=== PATIENT | female | born 1990 | race Caucasian/White ===

== ENCOUNTER 2020-04-01 06:51 | Emergency (ER) | payer OTHER ==
[2020-04-01] MEDS ORDERED: LORAZEPAM INJ 2 MG/1 ML VIAL IV ONE (07:52)
[2020-04-01] MEDS ORDERED: NORMAL SALINE 1000 ML 1,000 ML with POTASSIUM CHLORIDE 10 MEQ, MAGNESIUM SULFATE 8 MEQ,... IV PRN ×5 (07:54)
[2020-04-01 07:57] LABS: ALBUMIN 4.8 g/dL (3.5-5.0); ALCOHOL 53 mg/dL (NONE DETECTED); ALKALINE PHOSPHATASE 79 U/L (38-126); ANION GAP 16 (5-19); ASPARTATE AMINO TRANSFERASE 80 U/L (14-36); BILIRUBIN,DIRECT 0.2 mg/dL (0.0-0.4); BILIRUBIN,TOTAL 0.7 mg/dL (0.2-1.3); BLOOD UREA NITROGEN 4 mg/dL (7-20); CALCIUM 8.6 mg/dL (8.4-10.2); CARBON DIOXIDE 22 mmol/L (22-30); CHLORIDE 92 mmol/L (98-107); GLUCOSE 97 mg/dL (75-110); POTASSIUM 3.4 mmol/L (3.6-5.0); TOTAL PROTEIN 7.7 g/dL (6.3-8.2)
[2020-04-01 07:59] LABS: ABSOLUTE EOSINOPHILS # (AUTO) 0.1 10^3/uL (0.0-0.6); ABSOLUTE LYMPHOCYTES (AUTO) 0.6 10^3/uL (0.5-4.7); ABSOLUTE MONOCYTES (AUTO) 0.3 10^3/uL (0.1-1.4); ABSOLUTE NEUT (AUTO) 3.1 10^3/uL (1.7-8.2); BASOPHILS % (AUTO) 0.7 % (0-2); EOSINOPHILS % (AUTO) 1.3 % (0-6); HEMATOCRIT 34.8 % (36.0-47.0); HEMOGLOBIN 11.8 g/dL (12.0-15.5); LYMPHOCYTES % (AUTO) 14.2 % (13-45); MEAN CORPUSCULAR HEMOGLOBIN 30.9 pg (27.0-33.4); MEAN CORPUSCULAR VOLUME 91 fl (80-97); MONOCYTES % (AUTO) 6.9 % (3-13); PLATELET COUNT 187 10^3/uL (150-450); RED BLOOD COUNT 3.83 10^6/uL (3.72-5.28); RED CELL DISTRIBUTION WIDTH 18.4 % (11.5-14.0); SEGMENTED NEUTROPHILS % (AUTO) 76.9 % (42-78); TOTAL CELLS COUNTED % (AUTO) 100 %; WHITE BLOOD COUNT 4.1 10^3/uL (4.0-10.5)
[2020-04-01 08:01] LABS: ACETAMINOPHEN < 10 ug/mL (10-30); SALICYLATE < 1.0 mg/dL (2.0-20.0)
[2020-04-01 08:24] LABS: APPEARANCE,URINE CLEAR; BILIRUBIN,URINE NEGATIVE (NEGATIVE); COLOR,URINE COLORLESS; GLUCOSE, URINE NEGATIVE (NEGATIVE); KETONES,URINE NEGATIVE (NEGATIVE); LEUKOCYTE ESTERASE,URINE NEGATIVE (NEGATIVE); NITRITE,URINE NEGATIVE (NEGATIVE); PROTEIN,URINE NEGATIVE (NEGATIVE); URINE SPECIFIC GRAVITY 1.001; UROBILINOGEN,URINE NEGATIVE mg/dL (<2.0)
--- NOTE | 2020-04-01 08:39 | ER Document Report ---
ED General - General Chief Complaint: Alcohol Withdrawl Stated Complaint: ETOH WITHDRAWAL Time Seen by Provider: 04/01/20 07:49 Primary Care Provider: NAS ROLLINS MD [Primary Care Provider] - Follow up as needed Mode of Arrival: Ambulatory Information source: Patient Notes: 29-year-old woman presenting to the emergency department with the complaint of alcohol withdrawal symptoms. Apparently, she had been binging alcohol heavily for a few weeks and has now tried to taper herself off of the alcohol use. She was seen [facility] yesterday, states she received a banana bag and was discharged home. Later in the evening approximately 6 PM she began to have a shaky and withdrawal symptoms, she drank 2 cans of white claw to try and mitigate the symptoms. She presents to the emergency department now with severe shaking and withdrawal symptoms. She is tachycardic, diastolic blood pressure is elevated and she states she cannot rest. - Related Data Allergies/Adverse Reactions: No Known Allergies Allergy (Verified 04/01/20 08:56) Past Medical History - Social History Smoking Status: Current Every Day Smoker Family History: Reviewed & Not Pertinent Review of Systems - Review of Systems Notes: Constitutional: Negative for fever. HENT: Negative for sore throat. Eyes: Negative for visual changes. Cardiovascular: Negative for chest pain. Respiratory: Negative for shortness of breath. Gastrointestinal: Negative for abdominal pain, vomiting or diarrhea. Genitourinary: Negative for dysuria. Musculoskeletal: Negative for back pain. Skin: Negative for rash. Neurological: See HPI 10 point ROS negative except as marked above and in HPI. Physical Exam - Vital signs Vitals: Resp Pulse Ox 23 H 98 04/01/20 06:58 04/01/20 06:58 - Notes Notes: PHYSICAL EXAMINATION: Physical Exam: General: Well-nourished well-developed 29-year-old female of alcohol withdrawal symptoms. HEENT: NC/AT, pupils equal round and reactive to light, MM moist,nares clear, oropharynx clear, airway patent Neck: supple, no adenopathy, no masses. Good range of motion Lungs: clear, no wheezing, no rales no rhonchi CVS: Tachycardic rate and rhythm no murmur gallop or rub Abdomen: Soft, active, nontender, no masses, no hepatosplenomegaly Ext: No edema, clubbing or cyanosis. Neuro: Alert and responsive, she is shaking in the upper extremities Skin: Intact no open lesions, no rash PSYCH: Normal mood, normal affect. Course - Re-evaluation Re-evalutation: 04/01/20 10:21 29-year-old woman who presents with alcohol withdrawal symptoms. She is very shaky and tachycardic with an elevated diastolic blood pressure. I have had discussions with [facility] regarding transfer, a Covid test was requested. The rapid Covid test is negative. Patient is receiving a banana bag, she received Ativan 2 mg, she is also receive magnesium 800 mg p.o., the magnesium level is 1.0 04/01/20 10:35 I discussed the patient with Dr. Pyle at the [facility], she will accept the patient in transfer. Explained to the patient that she is being transferred to the [facility] given her active duty status. 04/01/20 11:16 Transfer Evaluation Prior to Transport. Patient is being transferred to [facility], evaluation at the time of transfer, patient is hemodynamically stable. Transport team successfully moved the patient onto the stretcher without incident. Patient stable for transport. - Vital Signs Vital signs: Temp Pulse Resp BP Pulse Ox 98.9 F 102 H 22 H 134/94 H 96 04/01/20 11:02 04/01/20 07:09 04/01/20 11:02 04/01/20 11:02 04/01/20 11:02 - Laboratory Results Result Diagrams: 04/01/20 07:03 04/01/20 07:03 Laboratory Results Interpreted: 04/01/20 04/01/20 04/01/20 07:03 07:03 07:03 Hgb 11.8 L Hct 34.8 L RDW 18.4 H Sodium 129.6 L Potassium 3.4 L Chloride 92 L BUN 4 L Magnesium 1.0 L* AST 80 H Salicylates < 1.0 L Acetaminophen < 10 L Critical Laboratory Results Reviewed: Yes Attending or Supervising Physician who Reviewed Labs: FRANDY WAITE - Low sodium, low magnesium - Radiology Results Critical Radiology Results Reviewed: No Critical Results - EKG Interpretation by Nm Rate: Normal - EKG interpreted by Dr. Waite: Normal sinus rhythm, rate 75, AK interval 110 ms QT interval 452 ms, prolonged QT normal axis, no acute ST or T wave abnormalities, no ischemic findings,there is no prior EKG for comparison. Interpretation: abnormal EKG Discharge - Discharge Clinical Impression: Hyponatremia, Low magnesium level, Alcohol abuse Alcohol withdrawal Qualifiers: Complication of substance-induced condition: with unspecified complication Qualified Code(s): F10.239 - Alcohol dependence with withdrawal, unspecified Condition: Stable Disposition: [facility] Referrals: NAS ROLLINS MD [Primary Care Provider] - Follow up as needed
[2020-04-01 08:44] LABS: URINE AMPHETAMINES SCREEN NEGATIVE; URINE BARBITURATES SCREEN NEGATIVE; URINE BENZODIAZEPINES SCREEN NEGATIVE; URINE COCAINE SCREEN NEGATIVE; URINE MARIJUANA (THC) SCREEN NEGATIVE; URINE METHADONE SCREEN NEGATIVE; URINE PHENCYCLIDINE SCREEN NEGATIVE
[2020-04-01] MEDS ORDERED: MAGNESIUM OXIDE 400 MG TABLET PO ONE (09:22)
[2020-04-01 11:19] VITALS: BP 134/94
--- NOTE | 2020-04-01 23:43 | EKG REPORT ---
SEVERITY:- ABNORMAL ECG - SINUS RHYTHM PROLONGED QT INTERVAL : Confirmed by: Fer Mcelroy 01-Apr-2020 23:42:30
== END 2020-04-01 11:22 ==
LOC: ER 06:51
DX: E87.1 Hypo-osmolality and hyponatremia (principal); E83.42 Hypomagnesemia; F10.239 Alcohol dependence with withdrawal, unspecified; R00.0 Tachycardia, unspecified; F17.200 Nicotine dependence, unspecified, uncomplicated; Z20.822 Contact with and (suspected) exposure to COVID-19
CPT/HCPCS: 93005; 99285; 96375; 96365; 36415; 80307 ×4; 83735; 85025; 0241U ×4; 80053; 81001; 93010; J3475; J2060; J3480; J3411; J7030; J3490; C9803